=== PATIENT | male | born 1970 ===

== ENCOUNTER → 2016-05-17 | Outpatient (CLI) | payer OTHER ==
[~2016-05-17] VITALS: Wt 104.1 kg
[2016-05-17 12:58] VITALS: BP_SYST 132; BP_SYST 135; BP_DIAS 91; PULSE 63; PULSE 71; BMI 40.0
[2016-05-17 14:14] VITALS: BP 138/111; PULSE 111; Wt 104.1 kg
[2016-05-17 14:16] VITALS: BP 140/84; PULSE 101
== END | disposition home or self-care (01) ==
LOC: C.NEUR 12:28
PROVIDERS: ATTEND Internal Medicine Pulmonary Disease
DX: G47.30 Sleep apnea, unspecified (principal)

== ENCOUNTER → 2016-06-07 | Outpatient (CLI) | payer OTHER ==
[2016-06-07 13:43] LABS: CHOLESTEROL/HDL RATIO 5.1
== END | disposition home or self-care (01) ==
LOC: C.LABMFLN 12:18
PROVIDERS: ATTEND Family Medicine
DX: E78.00 Pure hypercholesterolemia, unspecified (principal)

== ENCOUNTER → 2016-11-04 | Outpatient (CLI) | payer OTHER ==
[~2016-11-04] VITALS: Ht 172.7 cm; Wt 119.1 kg
[2016-11-04 13:54] VITALS: BP 128/81; PULSE 72; Ht 172.7 cm; Wt 119.1 kg
== END | disposition home or self-care (01) ==
LOC: C.NEUR 13:42
PROVIDERS: ATTEND Physician Assistant
DX: G47.30 Sleep apnea, unspecified (principal)